=== PATIENT | male | born 2000 | race Caucasian/White ===

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

== ENCOUNTER 2020-08-10 11:58 | Emergency (ER) | payer OTHER ==
[~2020-08-10] VITALS: Ht 182.9 cm; Wt 121.6 kg
[2020-08-10] MEDS ORDERED: ANTI-DIARRHEAL2 MG PO (12:26)
== END 2020-08-10 15:07 | disposition home or self-care (01) ==
LOC: ED 11:58
DX: H83.09 Labyrinthitis, unspecified ear (principal); R42 Dizziness and giddiness; Z79.899 Other long term (current) drug therapy
CPT/HCPCS: 70450; 80053; 83735; 85025; 99284-25

== ENCOUNTER 2020-08-21 13:35 | Emergency (ER) | payer OTHER ==
[~2020-08-21] VITALS: Ht 175.3 cm; Wt 111.1 kg
[~2020-08-21 13:35] MED LIST changes: +ANTI-DIARRHEAL2 MG PO
--- OUTSIDE RECORDS SUMMARY | 2020-08-21 13:40 | XMS ---
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 Care History Medical/Surgical 01/12/2019 [facility] - [facility] FROM DR HALE OFFICE- RECEIVED ORTHO REFERRAL ON 01/11/19. THEY APPROVED TO SEE PATIENT. - [facility] CONTACTED PATIENT- HIS MOM STATED THEY WILL BE SEEN BY THE [place] [facility] ON 01/12/19. - PLEASE REFER PATIENT TO DR HALE IF PATIENT DID NOT FOLLOW UP WITH ORTHO SURGEON IN [place] 11/23/2018 [facility] - Patient is currently established with [facility]. If patient is seen in the ED during business hours. Please contact CHWs at [facility]. Care Recommendation: This patient [...] providing care. E.D. VISIT COUNT (12 MO.) 2 NEGRITO Montanez TOTAL 2 NOTE: Visits indicate total known visits. ED/UCC VISIT TRACKING (12 MO.) 08/21/2020 13:36 NEGRITO Marquez [place] TYPE: Emergency COMPLAINT: - ALLERGIC REACTION FACIAL SWELLING 08/10/2020 11:59 NEGRITO Marquez [place] TYPE: Emergency COMPLAINT: - DIZZINESS, BLURRED VISION, LIGHTHEADED DIAGNOSES: - Dizziness and giddiness - Headache, unspecified - Other filler leaf cutter long (current) drug therapy - Labyrinthitis, unspecified ear INPATIENT VISIT TRACKING (12 MO.) No inpatient visits to display in this time frame [id number]
[2020-08-21] MEDS ORDERED: SULFAMETHOXAZO1 EAC1 PO (13:43)
[2020-08-21] MEDS ORDERED: AUGMENTIN 875-1 EACH PO (19:05)
== END 2020-08-21 19:18 | disposition home or self-care (01) ==
LOC: ED 13:35
DX: T78.3XXA Angioneurotic edema, initial encounter (principal); L03.211 Cellulitis of face; Z79.899 Other long term (current) drug therapy
CPT/HCPCS: 70487; 80053; 85025; 86160; 96375; 96376; 99284-25; J0295; J1100; J1200; J7030; Q9967

== ENCOUNTER 2020-08-23 19:30 | Emergency (ER) | payer OTHER ==
[~2020-08-23] VITALS: Ht 175.3 cm; Wt 111.1 kg
[~2020-08-23 19:30] MED LIST changes: +AUGMENTIN 875-1 EACH PO; +SULFAMETHOXAZO1 EAC1 PO
--- OUTSIDE RECORDS SUMMARY | 2020-08-23 19:32 | XMS ---
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 Ortiz VISIT COUNT (12 MO.) [address] [place] [address] TOTAL 3 NOTE: Visits indicate total known visits. ED/UCC VISIT TRACKING (12 MO.) 08/23/2020 19:[address] [facility] [place] TYPE: Emergency COMPLAINT: - FACIAL SWELLING 08/21/2020 13:36 NEGRITO Marquez [place] TYPE: Emergency COMPLAINT: - ALLERGIC REACTION FACIAL SWELLING 08/10/2020 11:[address] [facility] [place] TYPE: Emergency COMPLAINT: - DIZZINESS, BLURRED VISION, LIGHTHEADED DIAGNOSES: - Dizziness and giddiness - Headache, unspecified - Other [facility] (current[facility] drug therapy - Labyrinthitis, unspecified ear INPATIENT VISIT TRACKING (12 MO.) No inpatient visits to display in this time frame [id number]
[2020-08-23] MEDS ORDERED: HYDROCODON-ACE1 EA10 PO (20:06)
[2020-08-23] MEDS ORDERED: BACTRIM DS TAB1 EACH PO (20:06)
== END 2020-08-23 20:39 | disposition home or self-care (01) ==
LOC: ED 19:30
DX: L03.211 Cellulitis of face (principal); Z79.899 Other long term (current) drug therapy
CPT/HCPCS: 96372; 99283; J1885